=== PATIENT | male | born 2000 | race Caucasian/White ===

== ENCOUNTER → 2024-04-23 | Outpatient (CLI) | payer OTHER, SELFPAY ==
[2024-04-23 09:19] LABS: Hematocrit 45.6 % (40-54); Hemoglobin 14.9 g/dL (13.0-16.5); Mean Corp Hgb Conc 32.7 g/dL (32-36); Mean Corpuscular Volume 85.7 fL (80-94); Mean Platelet Vol. 9.4 fl (6.2-12.0); Platelet Count 307 K/mm3 (150-450); RBC Distribution Width CV 12.2 % (11.6-14.6); Red Blood Count 5.32 M/mm3 (4.6-6.2); White Blood Count 7.4 K/mm3 (4.4-11.0)
[2024-04-23 09:46] LABS: ALB/GLOB Ratio 1.1 RATIO (0.9-2.4); AST(SGOT) 31 U/L (15-37); Alanine Aminotransfer ALT/SGPT 47 U/L (16-61); Albumin, Serum 4.2 g/dL (3.2-5.0); Alkaline Phosphatase 103 U/L (45-117); Anion Gap 6 (5-15); BUN 13 mg/dL (7-18); Chloride 104 mmol/L (98-107); EST Glomerular Filtration Rate 98 mL/min (>60); Est Glom Filt Rate - Afr Amer 118 mL/min (>60); Estradiol 35.6 pg/mL; Follicle Stimulating Hormone 1.5 mIU/mL; Globulin 3.9 g/dL (2.2-4.2); Glucose 103 mg/dL (74-106); Luteinizing Hormone 3.5 mIU/mL; Potassium 3.8 mmol/L (3.5-5.1); Protein, Total 8.1 g/dL (6.4-8.2); Sodium Level 139 mmol/L (136-145)
[2024-04-24 13:42] LABS: Adrenocorticotropic Hormone 25.1 pg/mL (7.2-63.3); PROLACTIN 12.7 ng/mL (3.6-31.5); Sex Hormone-binding Globulin 21.3 nmol/L (16.5-55.9)
== END | disposition home or self-care (01) ==
LOC: PAVLAB 09:02
PROVIDERS: Referring Provider Nurse Practitioner Family; Visit Provider Nurse Practitioner Family
DX: N62 Hypertrophy of breast (principal)
CPT/HCPCS: 36415; 80053; 82024; 82670; 83001; 83002; 84146; 84270; 84443; 85027

== ENCOUNTER → 2024-04-30 | Outpatient (CLI) | payer OTHER, SELFPAY ==
--- NOTE | 2024-04-30 09:46 | US_ITS ---
STUDY: ULTRASOUND BREAST - RIGHT REASON FOR EXAM: Male, 24 years old. Right gynecomastia. TECHNIQUE: Axial and longitudinal images of the RIGHT breast were performed with a high resolution ultrasound transducer. # OF IMAGES: 14 COMPARISON: None. FINDINGS: RIGHT Breast: The retrohilar region of the breast was examined with ultrasound. Small amount of fibroglandular tissue. US/Breast Limited Unilateral IMPRESSION: Small amount of fibroglandular tissue. ASSESSMENT CATEGORY: BIRADS Category 2: Benign. A letter regarding these results will be sent to the patient by the facility within 30 days. Electronically Signed: Joshua Byrnes MD at 12:49 EDT ,
--- NOTE | 2024-04-30 09:46 | US_ITS ---
STUDY: ULTRASOUND BREAST - LEFT REASON FOR EXAM: Male, 24 years old. Gynecomastia. TECHNIQUE: Axial and longitudinal images of the LEFT breast were performed with a high resolution ultrasound transducer. # OF IMAGES: 12 COMPARISON: None. FINDINGS: LEFT Breast: The retroareolar region of the left breast was examined. Small amount of fibroglandular tissue in keeping gynecomastia. US/Breast Limited Unilateral IMPRESSION: Findings suggestive of gynecomastia. ASSESSMENT CATEGORY: BIRADS Category 2: Benign. A letter regarding these results will be sent to the patient by the facility within 30 days. Electronically Signed: Joshua Byrnes MD at 12:50 EDT ,
== END | disposition home or self-care (01) ==
LOC: OPUS 09:46
PROVIDERS: Referring Provider Nurse Practitioner Family; Visit Provider Nurse Practitioner Family
DX: N62 Hypertrophy of breast (principal)
CPT/HCPCS: 76642

== ENCOUNTER 2024-07-22 07:58 | Observation (INO) | payer OTHER, SELFPAY ==
[2024-07-22] VITALS (26 sets, daily range): BP systolic 97–153; BP diastolic 70–108; PULSE 69–114; RESP 16–18; TEMP 36.2–37.2; O2SAT 93–100; BMI 25.8
[2024-07-22] MEDS: Lactated Ringers 1,000 ML 15 ML IV ×2 (06:53→11:58)
[2024-07-22] MEDS: Cefazolin 2 GM in Syringe IV (08:19)
[2024-07-22] MEDS: LACTATED RINGERS OPERA.SITE (08:52)
[2024-07-22] MEDS: EPINEPHRINE OPERA.SITE (08:52)
[2024-07-22] MEDS: LIDOCAINE OPERA.SITE (08:52)
[2024-07-22] MEDS: Bupiv/Epi 0.25% 30 ML Vial (13:23)
[2024-07-22 16:35] LABS: Hemoglobin 13.7 g/dL (13.0-16.5); Mean Corp Hgb Conc 34.3 g/dL (32-36); Mean Corpuscular Hgb 28.8 pg (27.0-32.0); Mean Corpuscular Volume 84.2 fL (80-94); Mean Platelet Vol. 9.5 fl (6.2-12.0); Platelet Count 324 K/mm3 (150-450); RBC Distribution Width CV 12.3 % (11.6-14.6); RBC Distribution Width SD 37.4 fl (35.1-43.9); Red Blood Count 4.75 M/mm3 (4.6-6.2); White Blood Count 23.9 K/mm3 (4.4-11.0)
[2024-07-22] MEDS: Acetaminophen 325 MG Tablet 650 MG PO (17:32)
[2024-07-22] MEDS: oxyCODONE 5 MG Tablet PO ×2 (17:33→22:19)
[2024-07-22] MEDS: Ondansetron 4 MG/2 ML Vial IV (17:56)
[2024-07-23 03:16] VITALS: BP 129/81; PULSE 88; RESP 16; TEMP 36.7; O2SAT 97
[2024-07-23] MEDS: oxyCODONE 5 MG Tablet PO ×2 (03:19→11:28)
[2024-07-23 09:22] VITALS: BP 131/94; PULSE 109; RESP 16; TEMP 36.6; O2SAT 99
[2024-07-23] MEDS: FLU VACC 2024-25(6MOS UP)/PF 45 MCG/0.5 ML SYRINGE IM (09:37)
[2024-07-23] MEDS: Acetaminophen 325 MG Tablet 650 MG PO (11:27)
[2024-07-23 11:35] VITALS: BP 120/70; PULSE 76; RESP 16; TEMP 36.8; O2SAT 98
== END 2024-07-23 13:25 | disposition home or self-care (01) ==
LOC: ACINP 07-23 08:45 → SDC 07-23 08:46 → MS3 07-23 08:46
PROVIDERS: Admitting Provider Surgery Plastic and Reconstructive Surgery; PCP Nurse Practitioner Primary Care; Referring Provider Surgery Plastic and Reconstructive Surgery; Visit Provider Surgery Plastic and Reconstructive Surgery
PROC: (CPT 19300; principal; 2024-07-22 07:45)
DX: N62 Hypertrophy of breast (principal); Z23 Encounter for immunization
CPT/HCPCS: 19300; 00400; 10140; 00300; 85027; 86850; 86900; 86901; 88305; 90656; 94668; 96374; 99221; J7120; G0378; J2405